=== PATIENT | female | born 1935 | race Caucasian/White ===

== ENCOUNTER 2018-02-22 11:30 | Emergency (ER) | payer OTHER ==
[~2018-02-22] VITALS: Ht 157.5 cm; Wt 47.6 kg
[2018-02-22] MEDS ORDERED: KEFLEX500 M1 PO (12:27)
[2018-02-22 12:40] VITALS: BP 140/77
== END 2018-02-22 12:46 | disposition home or self-care (01) ==
LOC: ER 11:30
DX: L03.113 Cellulitis of right upper limb (principal)